=== PATIENT | male | born 1935 | race Caucasian/White ===

== ENCOUNTER → 2017-07-23 | Emergency (ER) | payer OTHER, BC ==
[~2017-07-23] VITALS: Ht 190.5 cm; Wt 106.6 kg
[~2017-07-23] MED LIST: AMOXICILLIN500 M1; ATORVASTATIN CA10 MG; ESOMEPRAZOLE MA40 MG; LEVAQUIN500 MG; MECLIZINE HCL12.5 MG; PREDNISONE10 MG; TAMS0.4C; ZESTRIL10 M1
== END | disposition home or self-care (01) ==
LOC: ER 09:40
DX: J06.9 Acute upper respiratory infection, unspecified (principal); J11.1 Influenza due to unidentified influenza virus with other respiratory manifestations